=== PATIENT | male | born 1955 | race Caucasian/White ===

== ENCOUNTER 2025-01-28 14:25 | Outpatient (AMB) | payer MEDICARE, SELFPAY ==
--- NOTE | 2025-01-28 14:38 | A.OFFVIS_ITS ---
Intake Visit Reasons: ED/Low Testo/Hx Of Prostate Cancer/Prostectomy(set Intake Note: Reason for Visit: New Patient Erectile Dysfunction/Low Testo/ Hx of Prostate Cancer/Prostatectomy Urology Meds: Tadalafil Blood Thinners: Aspirin Antibiotic Allergy: None Labs: PSA- <0.1 07/26/2022 Imaging: None Last PVR: None Family History: Prostate Cancer? Father, Maternal Grandfather Bladder Cancer? No Kidney Cancer? No Previous Urology? Yes Pst Specialist Required: No Accompanied by: Self / Same As Patient Allergies No Known Allergies Allergy (Verified 01/28/25 14:45) HPI Comments Details: Homar is a pleasant male. He is a patient of Dr. Cooley. He is seen for the following urologic conditions - prostate cancer - hypogonadism Reassess current testosterone level is Discussed potential testosterone boosters Would reinitiate penile injectables if required for erectile dysfunction Prostate cancer History prostatectomy - [place] 2011 [facility] Dr Mccormack PSA 08/16 <0.1 Erectile dysfunction with hypogonadism Labs- 06/18 T [address] Funk Had used injectables and possibly testosterone cream [facility] Medical History (Updated 01/28/25 @ 14:58 by Craig Dangelo MD) Rash Metatarsalgia Left knee pain Hypogonadism in male Hyperlipidemia History of tobacco use History of prostate cancer Diabetes mellitus Degenerative joint disease (DJD) of hip Agatston CAC score, >400 Surgical History H/O cataract extraction History of prostatectomy Family History Mother HTN (hypertension) Dementia Father Gallbladder disease Heart attack Prostate cancer Maternal Grandfather Prostate cancer Review of Systems Const Denies chills and Denies fever(s) Card Reports no additional complaints and Denies syncope Resp Denies cough GI Denies abdominal pain and Denies heartburn Reports as per HPI and Denies change in libido Neuro Denies syncope Psych Denies change in libido Endo Denies change in libido Physical Exam Const General: cooperative, healthy appearing, comfortable and no acute distress Orientation/consciousness: patient oriented x3 HEENT Face and sinus: Yes normal facial exam Mouth: moist mucous membranes Neck Neck: Yes normal visual inspection, Yes full ROM and Yes trachea midline Chest Chest palpation & inspection: normal inspection of the chest Resp Effort & Inspection: normal respiratory effort, able to speak in complete sentences and no respiratory distress GI Inspection: Yes normal to inspection Back/Spine/Pelvis Cervical Spine: normal cervical lordosis Thoracic/Lumbar Spine: thoracic and lumbar spine normal to inspection Skin General skin exam: no rashes or lesions noted Neuro General: patient oriented x3, gait normal, tone normal and moves all extremities Extrem General: Yes normal to inspection and Yes capillary refill normal Assessment & Plan Assessment & Plan (1) History of prostate cancer: Code(s): Z85.46 - Personal history of malignant neoplasm of prostate Category: Medical (2) Hypogonadism in male: Code(s): E29.1 - Testicular hypofunction Category: Medical Plan Repeat baseline testosterone lab work Orders: Orders Lutenizing Hormone Today E29.1 - Testicular hypofunction Testosterone, Free/Total Today E29.1 - Testicular hypofunction Estrad Free (Tot Ultra + Free) Today E29.1 - Testicular hypofunction Patient Instructions: This note is constructed using voice recognition software. While every effort has been made to ensure accuracy varnisher errors may have been included. Imaging studies, laboratory and physical exam results were discussed and reviewed in detail. No major barriers to patient understanding were identified. An opportunity to ask questions regarding the treatment plan was provided. All questions were answered. The patient expressed understanding and agreement with the above treatment plan. The patient is aware they should contact our office by phone for worsening of their current condition or the appearance of new urologic symptoms. Compliance is encouraged with any medications and followup testing that is ordered. It is a privilege to participate in the urologic care of your patient. If you have any questions or concerns regarding treatment for the above conditions, or other urologic issues, please do not hesitate to contact me. The office telephone contact is [phone]. Sincerely, Dr Craig Dangelo MD, [facility] - Urology Compassionate Specialist Care for the Genitourinary System Coding Level of Care Code New Pt Level 4 (82577) Diagnoses History of prostate cancer Z85.46 Hypogonadism in male E29.1
--- OUTSIDE RECORDS SUMMARY | 2025-01-28 18:32 | XMS_ITS | Encounter Summary ---
Author Organization [facility] Address [address] [place] [address] [place] [phone] Phone Care Team Providers Care Padding Gluer Name Role Phone Osmel Cooley MD Primary Care Provider Encounter Details Date Type Department Care Team (Late st Contact Info) Description 08/16/2024 Procedure Pass [facility] Cardiac [address] [place] [address] Social History Tobacco Use Types Packs/Day Years Used Date Smoking Tobacco: Every Day Comments:Smoking History Pac ks/day: <=0.5 Education Answer Date Recorded Are you interested in more education? Not on dez e 06/24/2022 Are you concerned about learning? Not on file 06/24/2022 No 06/24/2022 No 06/24/2022 Digital Access Answer Date Recorded No 07/21/2022 No 07/21/2022 No 07/21/2022 Reliable internet access at home? Not on file 07/21/2022 Device with a working camera? Not on file Sex and Gender Information Value Date Recorded Sex Assigned at Male 08/02/2024 4:53 PM EDT Legal Sex Male 5:23 PM EST Gender Identity Male 08/02/2024 4:53 PM EDT Sexual Orientation Straight 08/02/2024 4: 53 PM EDT documented as of this encounter Plan of Treatment Upcoming Encounters Date Type Department Care Team (Late st Contact Info) Description 08/25/2025 10:00 AM EDT Office Visit [facility] Cardiovascular Medicine [address] [facility], 5th Floor, [address] [place] [address] Lucho Anton MD [address] [place] [address] [email or web address] documented as of this encounter Visit Diagnoses Not on filedocumented in this encounter Care Teams Padding Gluer Relationship Specialty Start Date End Date Osmel Cooley MD [address] [place] [address] PCP - General 08/24/13 documented as of this encounter Additional Source Comments The information contained in this document represents components of the legal health record. It is not the complete legal health record.[facility]
--- OUTSIDE RECORDS SUMMARY | 2025-01-28 18:32 | XMS_ITS | Data Portability ---
Author Organization [place] - [facility], Allergy Address [address] [address] Care Team Providers Care Fieldwork Coordinator Name Role Phone MARCO HICKS Primary Care Provider Assessment Encounter Date Assessment Date Assessment LastModified by Organization Details LastModified Time 04/01/2024 04/01/2024 Reviewed pathophysiology of transformation of eczema to otitis externa and the rationale for Q-tip avoidance and dry ear precautions. Recommend a few drops of fluocinolone and a thin film of Lotrisone twice daily for two weeks then as needed for itching or flaking. Follow up in 6 months, sooner with concerns. Audiometric testing today demonstrates bilateral neurosensory hearing loss without significant asymmetry. Recommend hearing protection and annual audiometric testing, sooner with perceived change. [email or web address] Not available 04/01/2024 11:58:50 09/30/2024 09/30/2024 69yo male presen ts for evaluation of the ears. Cerumen impactions removed bilaterally, which patient tolerated well. TMs are normal to inspection. Recommend Q-tip avoidance and a few drops of mineral oil as needed to soften future cerumen. Recommend 6-month follow-up for cerumen debridement with hearing test after, sooner with issues. [email or web address] Not available 09/30/2024 13:07:36 Plan of Treatment Reminders Order Date Submit Date Provider Last Modified By Organization Details Last Modified Time Details Appointments Establish ed 15 2025 10:30A M DION LYNN PA-C Not available Not available Not available Lab None recorded. Referral None recorded. Procedures None recorded. Surgeries None recorded. Imaging None recorded. Medication Orders fluocinol one acetonide oil 0.01 % ear drops [address] [facility]acy #[id number], [address] [place], [address], 04/01/2024 11:55:53 clotrimaz ole-betam ethasone 1 %-0.05 % topical cream [address] [facility]/Pharmacy #[id number], [address] [place], [address], 04/01/2024 11:55:53 Patient TargetsNo targets recorded. Patient InstructionsNo instructions recorded. Reason for Referral None Reported. Results Created Date Observation Date Name Description Value Unit Range Abnormal Flag Note LastModifiedBy Organization Detail LastModifiedTime 04/02/19 25 audio gram No observ ation record ed. BARCODE Not Available 2024 10:59:59 Result Notes None recorded. Problems Name Problem SNOMED Code Status Onset Date Resolution Date Notes Provider Name and Address Organization Details Recorded Time Infectiv e otitis externa of bilatera l ears 47015158391 Completed 201809/26/2023 Other infectiv e otitis externa, bilatera l; Note: Date Diagnose d: 9 2:34 PM (H60.393 ) Not Available [facility] 4 02:45:19 Otorrhea of bilatera l ears 87426763453 31994 Completed 201809/26/2023 Otorrhea , bilatera l; Note: Date Diagnose d: 9 2:34 PM (H92.13) Not Available [facility] 4 02:45:23 Sensorin eural hearing loss of bilatera l ears 179354414 Active 2019 Sensorin eural hearing loss, bilatera l; Note: Date Diagnose d: 03/02/2019 3:32 PM (H90.3) Not Available [facility] 4 02:45:20 Otorrhea of left ear 61128623125 57990 Active 2022 Otorrhea , left ear; Note: Date Diagnose d: 3 2:46 PM (H92.12) Not Available [facility] 4 02:45:21 Itching of skin 631553469 Active 2022 Other pruritus ; Note: Date Diagnose d: 3 2:46 PM (L29.8) Not Available [facility] 4 02:45:17 Chronic eczema of external auditory canal 411922559 Active 2024 Rosamaria lopez [facility] 5 11:53:48 Impacted cerumen of bilatera l ears 21386704212 17271 Active 2024 DION LYNN PA-C [address] [place] [address],[place] [address], [place], [address] , [facility] 5 13:07:47 Problem Notes None recorded. Procedures Surgical History Date Name Laterality Status Provider Name and Address Organization Details Recorded Time 5 Cerumen removal without microscope bilat completed DION LYNN PA-C [address] [place] [address],[place] [address], [place], [phone], [facility] 09/30/2024 11:31:51 Imaging Results None recorded. Procedure Notes None recorded. Medical Equipment None Reported. Medications Name Sig Start Date Stop Date Status Note LastModified by Organization Details LastModified Time Elocon 0.1 % topical cream 1 as directed to skin 2018 active Medicatio n ID: [id number] Du ration Value: 14 Prescrib ed By Name: Daljit Walker Name: Elocon Se nd Method: E-Prescri bed Subs Allowed: subs OK Specia l Instructi on: apply to affected area twice daily Med icationGe nericName : Elocon Ca dication ID: [id number] Du ration Value: 14 Prescrib ed By Name: Daljit Walker Name: Elocon Se nd Method: E-Prescri bed Subs Allowed: subs OK Specia l Instructi on: apply to affected area twice daily Med icationGe nericName : Elocon Not Available Not Available Not Available ofloxacin 0.3 % eye drops 5 drop 2018 active Medicatio n ID: [id number] Du ration Value: 7 Prescrib ed By Name: Daljit Walker Name: ofloxacin Send Method: E-Prescri bed Subs Allowed: subs OK Specia l Instructi on: 5 drops into both ears twice daily for 5 days Medi cationGen ericName: ofloxacin Not Available Not Available Not Available Elocon 0.1 % topical lotion (solution) 1 as directed to skin 2018 active Medicatio n ID: [id number] Du ration Value: 14 Prescrib ed By Name: Daljit Walker Name: Elocon Se nd Method: E-Prescri bed Subs Allowed: subs OK Specia l Instructi on: apply to affected area twice daily Med icationGe nericName : Elocon Not Available Not Available Not Available clotrimazo le-betamet hasone 1 %-0.05 % lotion Apply a small amount three times a day as directed 2022 active Medicatio n ID: [id number] Du ration Value: 14 Brand Name: clotrimaz ole-betam ethasone Send Method: E-Prescri bed Subs Allowed: subs OK Specia l Instructi on: Apply with finger to ear canal skin. Med icationGe nericName : clotrimaz ole-betam ethasone Not Available Not Available Not Available permethrin 5 % topical cream PLEASE SEE ATTACHED FOR DETAILED DIRECTION S active Not Available Not Available No t Available benzonatat e 100 mg capsule TAKE 1 CAPSULE BY MOUTH THREE TIMES A DAY active Not Available Not Available No t Available clotrimazo le-betamet hasone 1 %-0.05 % topical cream APPLY TO AFFECTED AREA OF SKIN TWICE DAILY FOR 2 WEEK, THEN REDUCE TO -NEEDED FOR ITCHING/F LAKING active Not Available Not Available No t Available albuterol sulfate HFA 90 mcg/actuat ion aerosol inhaler TAKE 2 PUFFS INTO THE LUNGS EVERY 4-6 HOURS FOR 10 DAYS active Not Available Not Available No t Available Ciprodex 0.3 %-0.1 % ear drops,susp ension Apply 4 drop into both ears twice a day 2022 active Medicatio n ID: [id number] Du ration Value: 14 Brand Name: Ciprodex Send Method: E-Prescri bed Subs Allowed: subs OK Medica tionGener icName: Ciprodex Not Available Not Available Not Available rosuvastat in 10 mg tablet 2018 active Medicatio n ID: [id number] Du ration Value: 30 Brand Name: rosuvasta tin Send Method: E-Prescri bed Subs Allowed: subs OK Specia l Instructi on: TAKE 1 TABLET BY MOUTH EVERY DAY ([facility]?) Medicatio nGenericN ayse: rosuvasta tin Not Available Not Available Not Available rosuvastat in 20 mg tablet TAKE 1 TABLET DAILY active Not Available Not Available No t Available fluocinolo ne acetonide oil 0.01 % ear drops INSTILL 3 DROPS INTO BOTH EARS TWICE DAILY FOR 14 DAYS THEN NEEDED FOR ITCHING OR FLAKING active Not Available Not Available No t Available Vitals Date Recorded Body height Body mass index (BMI) Body weight Provider Name and Address Organization Details Last Updated DateTime 09/30/2024 187.96 cm 27.6 kg/m2 51019.36 g Sana Rai [facility] 09/30/2024 11:07:49 Social History None recorded. Functional Status None recorded. Mental Status None recorded. Family History Nothing Reported. Medical History No medical history recorded. Past Encounters Encounter ID Performer Location Encounter Start Date Encounter Closed Date Diagnosis/Indication Diagnosis SNOMED-CT Code Diagnosis ICD10 Code Diagnosis IMO Codes Diagnosis Note [id number] ROSAMARIA GROSS PA-C [facility] [address] [address] 04/01/2024 10:45:54 04/01/2024 11:56:52 Chronic eczema of external auditory canal 723738777 H60.8X9 Sensorineu ral hearing loss of bilateral ears 516616372 H90.3 Itching of skin 91224717 0 L29.89 [id number] DION LYNN PA-C [facility] [address] [address] 09/30/2024 10:50:09 09/30/2024 11:31:41 Sensorineural hearing loss of bilateral ears 417912072 H90.3 Impacted c erumen of bilateral ears 3608846557 792455 H61.23 653799 Health Concerns Section Related Observation LastModified by Organization Detai ls LastModified Time None Recorded Concern Status LastModified by Organization Details LastModified Time None Recorded Advance Directives Directive None Recorded Payers Insurance Date Sequence Insurance Name Policy Number Policy Herring Covered Member ID Herring Member ID Guarantor Name 09/30/2024 1 [place]MEDICARE [place]PLACEMENT PPO) [id number] Mickey Patino Bandar [id number] Mickey Patino Bandar 09/30/2024 2 [place] [facility] Mickey Patino Bandar [id number] Mickey Portillo 09/30/2024 3 [facility] - HEALTH NET PLAN (MEDICAID HMO) Mickey Patino Bandar [id number] Mickey Patino Bandar Notes Date Note Type Note Provider Name and Address Organization Details Recorded Time 04/01/2024 text/html ROS as noted in the HPI 68 year old male presents for evaluation of the ears. He note his ears bother him a lot in the winter. Skin splits in the ear canal and sometimes there is some otorrhagia. He puts a cream on it but doesn't know what it is. That seems to help a bit. He also flushes with water at times. No known psoriasis nor eczema but he does have dry skin systemically. Ears also get blocked a lot in the winter and there is a lot of wax. Currently hearing seems to be at baseline on the left and blocked on the right. There is no otorrhea nor otalgia. PHIL BENAVIDES MD [address] [place] [address], [phone], [facility] 04/05/2024 08:05:11 09/30/2024 text/html ROS as noted in the HPI 69yo male presents for evaluation of the ears. Reports no change in hearing. Ear itchiness resolved and he has not had to use fluocinolone or lotrisone. Occasional Qtip use. Denies ear pain or drainage. Hearing is stable, and audio was updated 6 months ago. Phil Jordan DO [address] [place] [address], [phone], [facility] 09/30/2024 13:54:09
--- OUTSIDE RECORDS SUMMARY | 2025-01-28 18:32 | XMS_ITS | Clinical Summary ---
Author Organization [facility] Address [address] [place] [phone] Phone Care Team Providers Care Mumps Developer Name Role Phone Osmel Cooley MD Primary Care Provider Allergies No known active allergies Medications atorvastatin (LIPITOR) 10 MG tablet Dose: Not available; Form: Not available; Route: PO; Frequency: Not available; Directions: As directed; Details: Dispense: Tablet(s); Date: 04/26/2013 04/27/19 14 Active tadalafiL (CIALIS) 5 MG tablet Take 1 tablet (5 mg total) by mouth daily. For BPH 90 tablet 02/07/20 Active papaverine-phe ntolamine-alpr ostadil (TRIMIX 30/6/100) 30 mg-6 mg-100 mcg/mL injection 0.2 mL by Intracavernosal route as needed. Use no more than 3 times per week. 10 mL 3 02/07/20 Active Active Problems Problem Noted Date Diagnosed Date Abnormal electrocardiogram (ECG) (EKG) Mixed hyperlipidemia 08/16/2024 Coronary artery calcification 08/16/2024 Type 2 diabetes mellitus wit hout complication, with long-term current use of insulin 08/16/2024 Impotence 04/26/2013 Overview (04/16/2014): Erectile dysfunction Malignant tumor of prostate 04/23/2012 Overview (04/16/2014): Prostate cancer Encounters Date Type Department Care Team Description 01/16/2025 Telephone [facility] Cardiology [address] [place] [address] Lucho Anton MD 01/13/2025 1:40 PM EST - 01/13/2025 11:59 PM EST Hospital Encounter [facility] Cardiac US [address] [place] [address] Lucho Anton MD Discharge Disposition: Home or Self Care 08/16/2024 Procedure Pass [facility] Cardiac US [address] [place] [address] from Last 3 Months Family History Medical History Relation Comments Uncoded Family History Father Carcinoma of prostate Relation Status Comments Father Social History Tobacco Use Types Packs/Day Years [...] Orientation Straight 08/02/2024 4: 53 PM EDT Last Filed Vital Signs Vital Sign Reading Time Taken Comments Blood Pressure 144/72 09/20/2024 3:53 PM EDT Pulse 45 09/20/2024 2:08 PM EDT Temperature 36.4 C (97.6 F) 10/22/2011 12:00 AM EDT Respiratory Rate - - Oxygen Saturation 100% 09/20/2024 2:08 PM EDT Inhaled Oxygen Concentration - - Weight 98.4 kg (217 lb) 01/13/2025 1:41 PM EST Height 188 cm (6' 2.02 ) 01/13/2025 1:41 PM EST Body Mass Index 27.85 01/13/2025 1:41 PM EST Plan of Treatment Upcoming Encounters Date Type Department Care Team (Late st Contact Info) Description 08/25/2025 10:00 AM EDT Office Visit [facility] Cardiovascular Medicine [address], [address] [place] [address] Lucho Anton MD [address] [facility] [address] [address] [email or web address] Health Maintenance Due Date Last Done Comments Adult Td,Tdap Booster 1954 BLOOD PRESSURE 1954 HEMOGLOBIN A1C 1954 DEPRESSION SCREENING 1966 SMOKING Hx and SMOKELESS TOBACCO SCREENING 09/28/1967 HEPATITIS C SCREENING 1972 LIPID PANEL 1972 PNEUMOCOCCAL VACCINES (50+ years) (1 of 2 - PCV) 1973 ZOSTER VACCINES (1 of 2) 1973 COLONOSCOPY 09/28/1999 FIT TEST 09/28/1999 FOBT 09/28/1999 SIGMOIDOSCOPY 09/28/1999 VIRTUAL COLONOSCOPY 09/28/1999 DIABETIC EYE EXAM 08/16/2024 URINE MICROALBUMIN/CREATININ E RATIO 08/16/2024 INFLUENZA VACCINE (#1) 2024 0, 12/17/2018, 11/06/2017 COVID-19 VACCINE (2 - 2024-2 6 season) 2024 04/24/2020 COLOGUARD 01/22/2026 01/22/2023 COLORECTAL CANCER SCREENING 01/22/2026 RSV VACCINE (1 - 1-dose 75+ series) 2029 HEPATITIS A VACCINES Aged Out No long er eligible based on patient's age to complete this topic HIB VACCINES Aged Out No longer eligi ble based on patient's age to complete this topic MENINGOCOCCAL VACCINES (ACWY) Aged Out No longer eligible based on patient's age to complete this topic MENINGOCOCCAL VACCINES (B) Aged Out N o longer eligible based on patient's age to complete this topic Medical Devices Not on file Procedures Procedure Name Priority Date/Time Associated Diagnosis Comments TTE COMPREHENSIVE Routine 01/13/2025 2:4 3 PM EST Abnormal electrocardiogram (ECG) (EKG) from Last 3 Months Results * TTE COMPREHENSIVE (01/13/2025 2:43 PM EST) Body Surface Area 2.25 m2 Left Ventricle Internal Diameter End Diastole 48 42 - 58 mm Interventricular Septum Thickness 12 6 - 11 mm Aortic Sinus Diameter 36 <40 mm Height 188 cm Left Ventricle Internal Diameter End Systole 34 <40 mm Left Ventricular Posterior Wall Thickness 13 6 - 11 mm Weight 98.40 kg Raw LV EF% 50 % Left Atrium Dimension Anterior-Posterior 46 15 - 40 mm Left Ventricular Apical Contribution 10 Ejection Fraction 60 50 - 75 % Relative Wall Thickness 0.54 0.22 - 0.42 Left Ventricle indexed to BSA 103.2 g/m2 Aortic Valve Sinus Index by BSA 16 mm/m2 Aorta Sinus Index by Height 1.91 cm/m Aorta Sinus CSA index by Height 5.41 cm2/m Aortic Sinus Index 16 mm Aortic Valve Sinus Index 1 16 20 - 32 mm Ascending Aorta Diameter 31 <36 mm Left Atrial Volume Index 29 16 - 34 mL/m2 Right Ventricle TAPSE 27 >=17 mm Right Ventricle Pulse Doppler S Wave 7.0 >=9.5 cm/s Right Ventricle Basal Diameter 46 25 - 41 mm Left Atrium Dimension Superior-Inferior 59 29 - 53 mm Left Atrial Volume 65 mL Left Atrial Volume Index by Height 35 mL/m Right Atrium Dimension Superior-Inferior 62 mm Right Atrium Index Superior-Inferior 28 19 - 30 mm/m2 Right Atrium Dimension Medial-Lateral 55 mm Right Atrium Dimension Medial-Lateral 24 13 - 25 mm/m2 Inferior Vena Cava Diameter 19 <21 mm Ascending Aorta Index 14 mm/m2 Asc Aorta CSA Index by Height 4.01 cm2/m Ascending Aorta Index 14 mm Ascending Aorta Diameter 14 mm AO ASC DIAM BSA INDEX 13.78 Right Atrium Dimension Medial-Lateral 24 mm/m2 Right Atrium Index Superior-Inferior 28 mm/m2 Anatomical Region Laterality Modality Heart Ultrasound Narrative 01/16/2025 9:44 AM EST Normal LV size and systolic function. Estimated LVEF is 60%. RV dilation (46mm) with normal systolic function. No significant valvular abnormalities. Left Ventricle The left ventricle is normal in size. There is symmetric hypertrophy. There is normal left ventricular systolic function. The LV ejection fraction is 60% (calculated via the single dimension method). There are no wall motion abnormalities. Right Ventricle The right ventricle is dilated. The RV basal dimension is 46 mm. There is normal right ventricular systolic function. Left Atrium The left atrium is normal in size. The left atrial superior-inferior dimension is 59 mm (normal: <= 53 mm). The left atrial volume is 65 mL. The left atrial volume index by BSA is 29 mL/m2 (normal: 16-34 mL/m2). Right Atrium The right atrium is normal in size. The IVC is normal in size with normal inspiratory collapse. The IVC diameter is 19 mm (normal: <= 21 mm). Mitral Valve There is no evidence of mitral valve prolapse. There is posterior mitral annular calcification. There is trace mitral regurgitation. Tricuspid Valve There is trace tricuspid regurgitation. RV systolic pressure could not be estimated due to insufficient TR Doppler envelope. Aortic Valve The aortic valve is tricuspid. There is thickening of the left and noncoronary leaflets. There is no aortic stenosis. There is no aortic regurgitation. Pulmonic Valve There is trace pulmonic regurgitation. Pericardium There is no pericardial effusion. General Findings The image quality was fair (3). The predominant rhythm during the study was sinus bradycardia. Comparison Findings There are no prior studies for comparison. us Lucho Anton MD CV ECHO ORDERABLES Final Result from Last 3 Months Insurance [place] P[place] BLUE REPLACEMENT MEDICARE PART A & B Member Subscriber Plan / Payer (Ef fective 2019-Present) Name:Mickey Portillo Member ID:[id number] Relation to Subscriber:Self Name:Mickey Portillo Subscriber ID:[id number] Payer ID:[id number] Group ID:Not on file Type:Medicare Address: [facility] [address] [place] [id number] [facility] MEDICARE PPO BLUE REPLACEMENT MEDICARE PART A & B [facility] MEDICARE PPO BLUE REPLACEMENT MEDICARE PART A & B [facility] MEDICARE PPO BLUE REPLACEMENT MEDICARE PART A & B [facility] MEDICARE PPO BLUE REPLACEMENT MEDICARE PART A & [place] [address] [address] [place] [address] MEDICARE PPO BLUE REPLACEMENT MEDICARE PART A & B Care Teams Mumps Developer Relationship Specialty Start Date End Date Osmel Cooley MD [address] [place] [phone] PCP - General 08/24/13 Additional Source Comments The information contained in this document represents components of the legal health record. It is not the complete legal health record.[facility]
== END 2025-01-28 15:04 | disposition home or self-care (01) ==
LOC: HO.HUSH 14:25
PROVIDERS: PCP Internal Medicine; Visit Provider Urology
DX: Z85.46 Personal history of malignant neoplasm of prostate (principal); E29.1 Testicular hypofunction
CPT/HCPCS: 99204

== ENCOUNTER → 2025-01-28 14:25 | Outpatient (BNVA) | payer MEDICARE, SELFPAY | PROVIDERS: PCP Internal Medicine; Visit Provider Urology | DX: E29.1 Testicular hypofunction (principal); Z85.46 Personal history of malignant neoplasm of prostate | CPT/HCPCS: 99202 ==